=== PATIENT | female | born 1955 | race Caucasian/White ===

== ENCOUNTER 2024-10-09 18:45 | Emergency (ER) | payer MEDICARE ==
[~2024-10-09] VITALS: Ht 162.6 cm; Wt 64.4 kg
[2024-10-09 19:09] VITALS: BP 145/84; PULSE 77; RESP 16; TEMP 97
--- NOTE | 2024-10-09 19:59 | ERN ---
General Chief Complaint: Laceration/Avulsion Stated Complaint: RIGHT THUMB LACERATION Time Seen by MD: 19:11 Source: patient History of Present Illness Initial Comments Patient is a 68-year-old female coming in to be evaluated for right thumb laceration. Per patient she was opening up a box of a stand grinder and hit cut her right thumb. She did put some pressure on the thumb and some pressure gauze as well. Allergies: Coded Allergies: sulfamethoxazole (Unverified Allergy, Unknown, 10/09/24) trimethoprim (Unverified Allergy, Unknown, 10/09/24) Past Medical History Past Medical History: Arthritis, Hypertension Past Surgical History: Hysterectomy, Cholecystectomy, Other Surgical History Other: BILATERAL WRIST ROS Dictation CONSTITUTIONAL: No chills, no fever, no weakness, no diaphoresis, no malaise. HEAD/FACE: No signs of trauma. EENT: No eye pain, no blurred vision, no tearing, no double vision, no ear pain, no ear discharge, no nose pain, no nasal congestion, no throat pain, no throat swelling, no mouth pain. RESPIRATORY: No cough, no orthopnea, no SOB, no stridor, no wheezing. CARDIOVASCULAR: No chest pain, no edema, no palpitations, no syncope. GASTROINTESTINAL/ABDOMINAL: No abdominal pain, no constipation, no diarrhea, no nausea, no vomiting. GENITOURINARY: No abnormal discharge, no dysuria, no frequent urination, no hematuria. No complaints of pain in the genitals. MUSCULOSKELETAL: No back pain, no gout, no joint pain, no joint swelling, no muscle pain, no muscle stiffness, no neck pain. INTEGUMENTARY: No change in color, no change in hair/nails, no dryness, thumb lesion, no lumps, no rash. NEUROLOGICAL/PSYCH: No anxiety, not depressed, no emotional problem, no headache, no numbness, no pre-existing deficit, no history of seizures, no tremors, no weakness. HEMATOLOGIC/LYMPHATIC: Not anemic, no history of blood clots, no apparent blee ding, no bruising, glands not swollen. All Systems Negative, Except as Noted. Physical Exam Physical Exam Dictation VITAL SIGNS: Reviewed. GENERAL APPEARANCE: Alert, oriented x3, no acute distress, obese. HEAD AND FACE: Non-traumatic. EYES: PERRL, pink conjunctivas, eyelid no trauma, anterior chamber clear. EARS: Pinnas intact and no signs of trauma or erythema. Ear canals clear and no discharge. TMs no erythema. NOSE: No discharge, no bleeding. OROPHARYNX: Mouth normal, teeth no caries, tongue pink. Pharynx clear, no erythema. Tonsils no exudates, no abscesses noted. Mucous membrane moist. NECK: Supple, non-tender, no thyromegaly, no masses, no JVD, no bruits. BREAST: Deferred. CHEST: No tenderness, no crepitus, no paradoxical movement, no retractions. LUNGS: Clear, well-ventilated, symmetric, no rales, no wheezing, no rhonchi, no stridor, good breath sounds bilaterally. HEART: Regular rate, regular rhythm, no murmur, no gallops. VASCULAR: No peripheral edema. ABDOMEN: Soft, positive bowel sounds, nondistended, no guarding, nontender, no rebound, no masses no hepatomegaly, no splenomegaly, no Hodges's sign, no hernias. RECTAL: Deferred. GENITAL: Deferred. NEUROLOGICAL: Normal speech, gross motor function intact, gross sensory function intact. MUSCULOSKELETAL: Neck nontender, full range of motion, back nontender, full range of motion. EXTREMITIES: Nontender, full range of motion. SKIN: Color pink, dry, no turgor, no rash, lacerations, no abrasions, no contusions. LYMPHATICS: Deferred. Results Laboratory and Microbiology Labs Reviewed?: Yes MDM MDM: DIFFERENTIAL DIAGNOSIS: THUMB LACERATION, THUMB WOUND, PATIENT IS A 68-YEAR-OLD FEMALE COMING IN TO BE EVALUATED FOR RIGHT THUMB LESION. ON PHYSICAL EXAM THERE IS A MILD LACERATION APPROXIMATED ON ITS OWN. L ACERATION WAS CLEANED THOROUGHLY AND APPROXIMATED USING DERMABOND. PATIENT TOLERATED PROCEDURE WELL WILL BE DISCHARGED IN STABLE CONDITION. PATIENT DOES NOT RECALL WHEN HER LAST TETANUS WAS SO TETANUS WAS GIVEN TO HER. ANTIBIOTICS WILL BE PRESCRIBED DUE TO THE LENGTH OF THE LACERATION. ED Course Orders Procedure Category Date Status Time Dermabond (Dermabond) PHA 10/09/24 Complete 19:44 Current Medications Medications (Trade) Dose Ordered Sig/Rudy Route PRN Reason Start Time Stop Time Status Last Admin Dose Admin Octyl Cyanoacrylate (Dermabond) 1 each ONCE STAT TP 10/09/24 19:44 10/09/24 19:45 DC Vital Signs Date Time Temp Pulse Resp B/P (MAP) Pulse Ox O2 Delivery O2 Flow Rate FiO2 10/09/24 19:09 97.0 77 16 145/84 100 Room Air Laceration/Wound Repair Laceration/Wound Repair : Wound Location: upper extremity Wound Length (cm): 3 Wound's Depth, Shape: superficial Wound Explored: clean Irrigated w/ Saline (ccs): 100 Betadine Prep?: Yes Wound Repaired With: Dermabond DX & DISP Disposition: Discharge Departure Impression: Primary Impression: Thumb laceration Condition: Stable Scripts Cephalexin Monohydrate (Keflex) 500 Mg Cap 1 CAP PO BID for 5 Days, #15 CAP 0 Refills Prov: FADUMO CHILEL MD 10/09/24 Additional Instructions: FOLLOW-UP WITH PRIMARY CARE PROVIDER IN 1 TO 2 DAYS. TAKE MEDICATIONS DIRECTED HERE IN THE EMERGENCY ROOM. OKAY TO CONTINUE HOME MEDICATIONS UNLESS OTHERWISE DISCUSSED DURING YOUR VISIT IN THE EMERGENCY ROOM TODAY. RETURN TO YOUR NEAREST EMERGENCY ROOM IF SYMPTOMS WORSEN OR IF THERE IS NO IMPROVEMENT. CALL 911 IF YOU NEED IMMEDIATE ASSISTANCE. TAKE TYLENOL [id number] NEEDED AND IF NO CONTRAINDICATIONS ARE PRESENT. INCREASE ORAL HYDRATION. A WOUND CULTURE OR URINE CULTURE WAS ORDERED HERE IN THE EMERGENCY ROOM DEPARTMENT PLEASE FOLLOW-UP WITH PRIMARY CARE PROVIDER AND ADVISE THEM TO GET REPEAT PORTS FROM OUR FACILITY. IF YOU HAD ANY STEPHANIE WRAP/SPLINTS THAT WERE APPLIED HERE, PLEASE DO NOT REMOVE THEM UNTIL YOU SEE YOUR PRIMARY CARE OR SPECIALTY. REFERRALS: Referrals: SELF,REFERRAL (PCP) RAOUL RANGEL MD Time of Disposition: 20:16 FADUMO CHILEL MD Oct 09, 2024 19:59
[2024-10-09] MEDS ORDERED: CEPH500B PO (20:17)
[2024-10-09] MEDS: OCTYL 2-CYANOACRYLATE 1 EACH TP STA (20:20)
[2024-10-09] MEDS: teTANUS/diphthERIA TOXOID [ADULT] 0.5 ML VIAL IM ONE (20:38)
== END 2024-10-09 20:39 | disposition home or self-care (01) ==
LOC: EDH 18:45
DX: S61.011A Laceration without foreign body of right thumb without damage to nail, initial encounter (principal); I10 Essential (primary) hypertension; M19.90 Unspecified osteoarthritis, unspecified site; Z88.1 Allergy status to other antibiotic agents; Z88.2 Allergy status to sulfonamides; Z90.49 Acquired absence of other specified parts of digestive tract; Z90.710 Acquired absence of both cervix and uterus; W45.8XXA Other foreign body or object entering through skin, initial encounter; Y93.89 Activity, other specified; Y92.89 Other specified places as the place of occurrence of the external cause; Y99.8 Other external cause status
CPT/HCPCS: 12002; 90471; 90714; 99283